=== PATIENT | female | born 1960 | race Caucasian/White ===

== ENCOUNTER 2020-10-15 14:24 | Observation (INO) | payer MEDICARE ==
[~2020-10-15] VITALS: Ht 170.2 cm; Wt 97.5 kg
[~2020-10-15 14:24] MED LIST: LAMICTAL100 MG PO; TRAZODONE HCL50 MG PO
[2020-10-15] MEDS ORDERED: ASPIRIN 81 MG CHEW TAB PO ONE (14:45)
[2020-10-15 15:58] LABS: BASOPHILS % 0.1 % (0.0-1.0); EOSINOPHILS # (AUTO) 0.1 (0.0-0.4); HEMATOCRIT 48.4 % (34.2-44.1); HEMOGLOBIN 15.3 g/dL (12.0-16.0); LYMPHOCYTES # (AUTO) 2.1 (1.0-3.2); LYMPHOCYTES % 23.4 % (18.0-39.1); MEAN CORPUSCULAR HEMOGLOBIN 28.3 pg (28-32); MEAN CORPUSCULAR HGB CONC 31.6 g/dL (31-35); MEAN CORPUSCULAR VOLUME 89.6 fL (81-99); MONOCYTES # (AUTO) 0.8 (0.2-0.8); NEUTROPHILS # (AUTO) 5.8 (2.1-6.9); PLATELET COUNT 371 x10e3/uL (140-360); RED CELL DISTRIBUTION WIDTH 13.8 % (11.7-14.4)
[2020-10-15 16:11] LABS: INR 0.86; PROTHROMBIN TIME 12.2 seconds (11.9-14.5)
[2020-10-15 16:12] LABS: PARTIAL THROMBOPLASTIN TIME 29.8 seconds (23.8-35.5)
[2020-10-15 16:22] LABS: ALANINE AMINOTRANSFERASE 16 IU/L (0-55); ALBUMIN 4.1 g/dL (3.5-5.0); ALBUMIN/GLOBULIN RATIO 1.1 (0.8-2.0); ALKALINE PHOSPHATASE 130 IU/L (40-150); ANION GAP 12.8 mmol/L (8-16); BLOOD UREA NITROGEN 9 mg/dL (7-26); BUN/CREATININE RATIO 11 (6-25); CALCIUM 9.6 mg/dL (8.4-10.2); CARBON DIOXIDE 28 mmol/L (22-29); CHLORIDE 105 mmol/L (98-107); CREATINE KINASE 77 IU/L (29-168); CREATININE, SERUM 0.79 mg/dL (0.57-1.11); EST GLOMERULAR FILTRATION RATE > 60 ML/MIN (60-); GLUCOSE 107 mg/dL (74-118); POTASSIUM 3.8 mmol/L (3.5-5.1); SODIUM 142 mmol/L (136-145)
[2020-10-15 18:45] LABS: CLARITY,URINE SL CLOUDY (CLEAR); COLOR,URINE AMBER (YELLOW)
[2020-10-15 18:46] LABS: AMPHETAMINES SCREEN,URINE NEGATIVE (NEGATIVE); BENZODIAZEPINES SCREEN,URINE POSITIVE (NEGATIVE); KETONES,URINE 1+ (NEGATIVE); LEUKOCYTE ESTERASE ,URINE SMALL (NEGATIVE); NITRITE,URINE POSITIVE (NEGATIVE); PHENCYCLIDINE SCREEN,URINE NEGATIVE (NEGATIVE); PROTEIN,URINE DIPSTICK 2+ (NEGATIVE); URINE UROBILINOGEN 2 mg/dL (0.2 - 1)
[2020-10-15 18:57] LABS: AMORPHOUS SEDIMENT,URINE MODERATE (FEW); BACTERIA,URINE MODERATE /HPF; CALCIUM OXALATE CRYSTALS,UR FEW (FEW); EPITHELIAL CELLS,URINE FEW /LPF
[2020-10-15] MEDS ORDERED: ACETAMINOPHEN 325 MG TAB PO ONE (19:00)
[2020-10-15] MEDS ORDERED: SODIUM CHLORIDE 0.9% 1000ML 1,000 ML IV ONE (20:00)
[2020-10-15] MEDS ORDERED: IBUPROFEN 600 MG TAB PO PRN (20:00)
[2020-10-15] MEDS ORDERED: ONDANSETRON HCL INJ 2MG/ML 2ML 2 MG/ML VIAL IV PRN (20:00)
[2020-10-15] MEDS: LEVOFLOXACIN 500MG/D5W 100ML 100 ML IV SCH (20:23)
[2020-10-15 21:30] VITALS: BP 133/79
[2020-10-15] MEDS ORDERED: SODIUM CHLORIDE 0.9% 100 ML ONE (22:47)
[2020-10-15] MEDS ORDERED: IOPAMIDOL 370 MG/ML 200 ML INFUS..BTL INJ ONE (22:49)
[2020-10-16] VITALS (7 sets, daily range): BP systolic 102–116; BP diastolic 47–68
[2020-10-16] MEDS ORDERED: HYDROXYZINE HCL50 MG (01:35)
[2020-10-16] MEDS ORDERED: SERTRALINE HCL100 MG PO (01:36)
[2020-10-16] MEDS ORDERED: RISPERIDONE1 MG PO (01:41)
[2020-10-16] MEDS ORDERED: TRAZODONE HCL150 MG (01:41)
[2020-10-16 06:12] LABS: BASOPHILS % 0.1 % (0.0-1.0); EOSINOPHILS # (AUTO) 0.1 (0.0-0.4); HEMATOCRIT 40.6 % (34.2-44.1); HEMOGLOBIN 13.1 g/dL (12.0-16.0); LYMPHOCYTES # (AUTO) 2.6 (1.0-3.2); LYMPHOCYTES % 39.2 % (18.0-39.1); MEAN CORPUSCULAR HEMOGLOBIN 28.6 pg (28-32); MEAN CORPUSCULAR HGB CONC 32.3 g/dL (31-35); MEAN CORPUSCULAR VOLUME 88.6 fL (81-99); MONOCYTES # (AUTO) 0.7 (0.2-0.8); MONOCYTES % 10.7 % (4.4-11.3); NEUTROPHILS # (AUTO) 3.3 (2.1-6.9); NEUTROPHILS % 48.7 % (38.7-80.0); PLATELET COUNT 324 x10e3/uL (140-360); RED BLOOD COUNT 4.58 x10e6/uL (3.6-5.1); RED CELL DISTRIBUTION WIDTH 13.8 % (11.7-14.4)
[2020-10-16 06:37] LABS: CREATINE KINASE 75 IU/L (29-168)
[2020-10-16 07:02] LABS: ALANINE AMINOTRANSFERASE 9 IU/L (0-55); ALBUMIN 3.1 g/dL (3.5-5.0); ALBUMIN/GLOBULIN RATIO 0.9 (0.8-2.0); ALKALINE PHOSPHATASE 85 IU/L (40-150); ANION GAP 13.5 mmol/L (8-16); BLOOD UREA NITROGEN 8 mg/dL (7-26); BUN/CREATININE RATIO 12 (6-25); CALCIUM 8.4 mg/dL (8.4-10.2); CARBON DIOXIDE 21 mmol/L (22-29); CHLORIDE 110 mmol/L (98-107); CREATININE, SERUM 0.66 mg/dL (0.57-1.11); EST GLOMERULAR FILTRATION RATE > 60 ML/MIN (60-); GLUCOSE 84 mg/dL (74-118); POTASSIUM 3.5 mmol/L (3.5-5.1); SODIUM 141 mmol/L (136-145)
[2020-10-16] MEDS: ACETAMINOPHEN 325 MG TAB PO PRN ×2 (10:12→15:14)
[2020-10-16 12:23] LABS: CREATINE KINASE MB 0.9 ng/mL (0-5.0)
[2020-10-16] MEDS ORDERED: SODIUM CHLORIDE 0.9% 250ML 250 ML ONE (19:38)
[2020-10-16] MEDS: LEVOFLOXACIN 500MG/D5W 100ML 100 ML IV SCH (19:42)
[2020-10-17] VITALS: BP 117/73
[2020-10-17 04:00] VITALS: BP 122/60
[2020-10-17 08:26] VITALS: BP 108/84
[2020-10-17 08:38] VITALS: BP 108/84
[2020-10-17 12:27] VITALS: BP 106/74
[2020-10-17] MEDS ORDERED: DOCUSATE SODIUM 100 MG CAP PO PRN (14:45)
[2020-10-17] MEDS ORDERED: ZOLPIDEM TARTRATE 5 MG TAB PO PRN (14:45)
[2020-10-17] MEDS ORDERED: AZTREONAM 1 GM/NS 50 ML 50 ML IV SCH (15:00)
[2020-10-17] MEDS ORDERED: FAMOTIDINE 20 MG TAB PO SCH (16:30)
[2020-10-17] MEDS ORDERED: ENOXAPARIN SOD INJ 40 MG/0.4 ML SYR SC SCH (17:00)
[2020-10-17] MEDS ORDERED: SERTRALINE HCL 100 MG TAB PO SCH (21:00)
[2020-10-18] MEDS ORDERED: ASPIRIN 81 MG CHEW TAB PO SCH (09:00)
[2020-10-18] MEDS ORDERED: LAMOTRIGINE 100 MG TAB PO SCH (09:00)
[2020-10-18] MEDS ORDERED: RISPERIDONE 1 MG TAB PO SCH (09:00)
== END 2020-10-17 15:22 | disposition left against medical advice (07) ==
LOC: ER 15:25 → ERHOLD 19:48 → MED/SURG3 21:16
PROVIDERS: ADMIT Internal Medicine; ATTEND Internal Medicine
DX: R41.0 Disorientation, unspecified (principal); Z86.73 Personal history of transient ischemic attack (TIA), and cerebral infarction without residual deficits; Z20.822 Contact with and (suspected) exposure to COVID-19
CPT/HCPCS: 36415 ×2; 70450; 70496; 70551; 80053 ×2; 80307; 81001; 82550 ×2; 82553 ×2; 84484 ×2; 85025 ×2; 85610; 85730; 87086; 87186; 99284; G0378 ×3; J1956 ×2; J7030; J7050 ×2; Q9967; U0002

== ENCOUNTER 2021-03-23 17:39 | Emergency (ER) | payer MEDICARE ==
[~2021-03-23] VITALS: Ht 170.2 cm; Wt 97.5 kg
[~2021-03-23 17:39] MED LIST changes: +HYDROXYZINE HCL50 MG; +RISPERIDONE1 MG PO; +SERTRALINE HCL100 MG PO; +TRAZODONE HCL150 MG
[2021-03-23] MEDS ORDERED: ALBUTEROL/IPRATROPIUM 3 ML NEB NEB ONE ×2 (18:45→19:45)
[2021-03-23] MEDS ORDERED: METHYLPREDNISOLONE SOD SUCC 125 MG/2ML VIAL IV ONE (18:45)
[2021-03-23] MEDS ORDERED: METHYLPREDNISOLONE SOD SUCC 125 MG/2ML VIAL ONE (19:26)
[2021-03-23] MEDS ORDERED: ALBUTEROL/IPRATROPIUM 3 ML NEB ONE (19:26)
[2021-03-23 21:26] VITALS: BP 136/81
== END 2021-03-23 20:10 | disposition home or self-care (01) ==
LOC: FSED 18:53
DX: J44.9 Chronic obstructive pulmonary disease, unspecified (principal); Z72.0 Tobacco use; F12.90 Cannabis use, unspecified, uncomplicated; F31.9 Bipolar disorder, unspecified; Z88.0 Allergy status to penicillin; Z88.8 Allergy status to other drugs, medicaments and biological substances; E66.9 Obesity, unspecified
CPT/HCPCS: 71046; 83518; 87400; 93005; 99283; J2930